=== PATIENT | male | born 1955 | race Caucasian/White ===

== ENCOUNTER → 2017-03-18 | Outpatient (CLI) | payer OTHER ==
[~2017-03-18] MED LIST: PANT40TA2 PO
[2017-03-18 09:03] LABS: Basophils # (auto) 0.1 uL; Basophils % (auto) 1.1 % (0.0-2.0); Eosinophils # (auto) 0.2 uL; Eosinophils % (auto) 3.6 % (0.0-7.0); Hematocrit 46.1 % (41.0-53.0); Lymphocytes # (auto) 2.2 uL; Lymphocytes % (auto) 33.2 % (10.0-50.0); Mean Corpuscular Hemoglobin 31.7 pg (28.0-32.0); Mean Corpuscular Hgb Conc. 34.7 g/dL (32.0-36.0); Mean Corpuscular Volume 91.4 fL (80.0-100.0); Monocytes # (auto) 0.7 uL; Monocytes % (auto) 10.1 % (0.0-12.0); Neutrophils # (auto) 3.5 uL; Platelet Count (auto) 263 10^3/uL (140-450); Red Blood Cells 5.04 10^6/uL (4.5-5.90); Red Cell Distribution Width 13.5 % (11.8-14.3); White Blood Cell 6.8 10^3/uL (4.4-10.8)
[2017-03-18 09:26] LABS: Albumin 3.9 g/dL (3.4-5.0); BUN/Creatinine Ratio 15.9; Bilirubin, Total 0.9 mg/dL (0.2-1.0); Potassium 3.7 mmol/L (3.5-5.1); Total Protein 7.7 g/dL (6.4-8.2)
[2017-03-18 09:42] LABS: Urine Bacteria NONE SEEN /hpf (None Seen); Urine Blood Negative /uL (Negative); Urine Specific Gravity 1.022 (1.001-1.035); Urine WBC 1 /hpf (0 - 3)
[2017-03-18 10:02] LABS: Free T4 (Free Thyroxine) 0.98 ng/dL (0.89-1.76); Prostate Specific Antigen 1.99 ng/mL (0.0-4.0)
== END | disposition home or self-care (01) ==
LOC: LAB 06:34
PROVIDERS: ATTEND Internal Medicine
DX: K21.9 Gastro-esophageal reflux disease without esophagitis (principal); N40.0 Benign prostatic hyperplasia without lower urinary tract symptoms; Z79.899 Other long term (current) drug therapy
CPT/HCPCS: 36415; 80053; 80061; 81001; 84153; 84439; 84443; 85025; 85652

== ENCOUNTER → 2017-05-04 | Outpatient (CLI) | payer OTHER | END | disposition home or self-care (01) | LOC: LAB 03-04 08:40 | PROVIDERS: ATTEND Physician Assistant | DX: D22.9 Melanocytic nevi, unspecified (principal); L82.1 Other seborrheic keratosis ==